=== PATIENT | male | born 1990 | race Caucasian/White ===

== ENCOUNTER 2019-07-15 12:37 | Emergency (ER) | payer OTHER ==
[~2019-07-15] VITALS: Ht 185.4 cm; Wt 81.3 kg
[2019-07-15] MEDS ORDERED: IBUPROFEN 800 MG TAB PO ONE (13:00)
--- NOTE | 2019-07-15 14:38 | REP ---
SCROTAL ULTRASOUND: Real-time sonographic evaluation of the scrotum and contents performed. The testicles appear normal in size and echotexture, right testicle measuring 4.6 x 2.5 x 3.5 cm and left testicle 5.7 x 2.3 x 2.6 cm. There is no testicular mass or torsion. Blood flow is seen in the each testicle with duplex Doppler evaluation. A cyst in the tail of the right epididymis measures 4 mm. The tail of the epididymis appears enlarged with increased blood flow with duplex Doppler evaluation suggesting right-sided epididymitis. There is also a small right hydrocele. There is a 3 mm cyst in the head of the left epididymis. There appear to be mild left varicocele. Prominent venous structures lateral to the left testicles demonstrate increased flow with Valsalva maneuver. IMPRESSION: No testicular mass or torsion. Findings most consistent with right-sided epididymitis with small right hydrocele. Electronically Signed by Carlos Mcfarlane MD 07/15/2019 06:21 P
[2019-07-15] MEDS ORDERED: DOXYCYCLINE HYCLATE 100 MG TAB PO ONE (15:00)
[2019-07-15] MEDS ORDERED: cefTRIAXone SOD 250 MG VIAL (J0696) IM ONE (15:00)
[2019-07-15] MEDS ORDERED: LIDOCAINE 1% SDV 5 ML VIAL DILUENT ONE (15:00)
[2019-07-15] MEDS ORDERED: DOXY100C37 PO (15:01)
[2019-07-15 15:33] LABS: CHLAMYDIA DNA AMPLIFICATION POSITIVE (NEGATIVE); GC DNA AMPLIFICATION NEGATIVE (NEGATIVE)
[2019-07-15 15:41] VITALS: BP 133/86
== END 2019-07-15 15:47 | disposition home or self-care (01) ==
LOC: M ED 12:37
DX: N45.1 Epididymitis (principal); N43.3 Hydrocele, unspecified; F17.210 Nicotine dependence, cigarettes, uncomplicated
CPT/HCPCS: 76870; 81001; 87086; 87661; 93976; 96372; 99283; J0696